=== PATIENT | female | born 1975 | race Caucasian/White ===

== ENCOUNTER 2016-05-06 21:05 | Emergency (ER) | payer MEDICAID, OTHER ==
[~2016-05-06] VITALS: Ht 162.6 cm; Wt 75.0 kg
[2016-05-06 22:17] VITALS: Ht 162.6 cm; Wt 75.0 kg
[2016-05-06 23:46] LABS: URINE BLOOD (Dip) POC Negative (NEGATIVE)
[2016-05-07] MEDS ORDERED: ONDANSETRON 4 MG INJ IV STA
[2016-05-07] MEDS ORDERED: morphine 4 MG/ML VIAL IV STA
--- NOTE | 2016-05-07 01:00 | ERD ---
ER Documentation Chief Complaint Date/Time DATE: 05/07/16 TIME: 00:58 Chief Complaint AP since Tuesday, No BM today HPI This is a 41-year-old female presents to the ER with multiple complaints. Patient is complaining of right lower quadrant pain that radiates to the left lower quadrant since Tuesday. Pain is sharp and intermittent. She has not tried anything for the pain. Patient denies nausea vomiting or diarrhea. She also denies constipation. Patient had a normal bowel movement earlier today. Patient is also complaining of chest pain and chest pressure. She denies any shortness of breath. Chest pain is nonexertional. Patient is additionally complaining of facial numbness. She denies any facial weaknesses. She denies any headaches. She denies any vision loss or vision changes. Patient also complains of weakness and fatigue. She denies any fevers or chills. Denies any hematochezia or hematemesis. She denies any urinary frequency or dysuria. There are no sick contacts at home. ROS 12 point review of systems was done, all negative except per HPI. Medications Home Meds Active Scripts Ibuprofen* (Motrin*) 600 Mg Tab, 600 MG PO Q6, #30 TAB Prov:JOSE,JACEY C 05/07/16 Hydrocodone/Acetaminophen ([place] 5-325 Tablet) 1 Each Tablet, 1 TAB PO Q6H Y for PAIN, #15 TAB Prov:JOSEJACEY C 05/07/16 Allergies Allergies: Coded Allergies: No Known Allergy (Unverified , 12/20/13) PMhx/Soc History of Surgery: No Anesthesia Reaction: No Hx Neurological Disorder: No Hx Respiratory Disorders: No Hx Cardiac Disorders: No Hx Psychiatric Problems: No Hx Miscellaneous Medical Probl: No Hx Alcohol Use: No Hx Substance Use: No Hx Tobacco Use: No Physical Exam Vitals Vital Signs Date Time Temp Pulse Resp B/P Pulse Ox O2 Delivery O2 Flow Rate FiO2 05/06/16 22:17 99.7 81 18 113/73 99 Physical Exam GENERAL: The patient is well developed and appropriate for usual state of health , in no apparent distress. HEENT: Atraumatic. PERRLA. Extraocular movements are intact. CHEST: Clear to auscultation bilaterally. There are no rales, wheezes or rhonchi. HEART: Regular rate and rhythm. No murmurs, clicks, rubs or gallops. ABDOMEN: Soft, nontender and nondistended. Good bowel sounds. No rebound or guarding. No gross peritonitis. No gross organomegaly or masses. No Cano sign or McBurney point tenderness. BACK: No midline or flank tenderness. NEURO: Alert and oriented. Cranial nerves II through XII are intact. Motor strength in all 4 extremities with 5/5 strength. Sensation grossly intact. Normal speech and gait. SKIN: There is no apparent rash or petechia. The skin is warm and dry. Result Diagram: 05/07/16 0042 Results 24 hrs Laboratory Tests Test 05/06/16 23:47 05/07/16 00:42 05/07/16 01:05 Bedside Urine Blood Negative Bedside Urine Glucose (UA) Negative Bedside Urine Ketones (LAB) Negative Bedside Urine Leukocyte Esterase (L Trace Bedside Urine Nitrite (LAB) Negative Bedside Urine Protein (LAB) Negative Bedside Urine pH (LAB) 6.0 Basophils # 0.010^3/ul Basophils % 0.5% Eosinophils # 0.110^3/ul Eosinophils % 1.4% Hematocrit 37.9% Hemoglobin 12.8g/dl Lymphocytes # 3.010^3/ul Lymphocytes % 47.1% Mean Corpuscular Hemoglobin 30.1pg Mean Corpuscular Hemoglobin Concent 33.8g/dl Mean Corpuscular Volume 89.2fl Mean Platelet Volume 9.1fl Monocytes # 0.510^3/ul Monocytes % 7.2% Neutrophils # 2.810^3/ul Neutrophils % 43.6% Nucleated Red Blood Cells # 0.010^3/ul Nucleated Red Blood Cells % 0.0/100WBC Platelet Count 04073^3/UL Red Blood Count 4.2510^6/ul Red Cell Distribution Width 12.0% White Blood Count 6.410^3/ul Urine Bilirubin NEGATIVE Urine Clarity CLEAR Urine Color LT. YELLOW Urine Glucose NEGATIVE% Urine Hemoglobin NEGATIVE Urine Ketones NEGATIVE Urine Leukocyte Esterase NEGATIVE Urine Nitrite NEGATIVE Urine Specific [place] 1.025 Urine Total Protein NEGATIVE Urine Urobilinogen 0.2 E.U./dL Urine pH 6.0 Current Medications Medications (Trade) Dose Ordered Sig/Elaine Route PRN Reason Start Time Stop Time Status Last Admin Dose Admin Morphine Sulfate (morphine) 4 mg ONCE STAT IV 05/07/16 00:00 05/07/16 00:05 DC 05/07/16 00:49 Ondansetron HCl (Zofran Inj) 4 mg ONCE STAT IV 05/07/16 00:00 05/07/16 00:05 DC 05/07/16 00:00 Procedures/MDM Jennie [address] elevation or T-wave inversion read by Dr. Law Departure Diagnosis: Primary Impression: Multiple complaints Condition: Stable JACEY GARCIA May 07, 2016 01:00
[2016-05-07 01:15] LABS: ADD SCAN DIFF NO
[2016-05-07 01:22] LABS: BASOPHILS % 0.5 % (0.0-2.0); EOSINOPHILS # 0.1 10^3/ul (0.0-0.5); EOSINOPHILS % 1.4 % (0.0-7.0); HEMATOCRIT 37.9 % (37.0-47.0); HEMOGLOBIN 12.8 g/dl (12.0-16.0); LYMPHOCYTES % 47.1 % (15.0-51.0); MEAN CORPUSCULAR HEMOGLOBIN 30.1 pg (29.0-33.0); MEAN CORPUSCULAR HGB CONC 33.8 g/dl (32.0-37.0); MEAN CORPUSCULAR VOLUME 89.2 fl (82.0-101.0); MEAN PLATELET VOLUME 9.1 fl (7.4-10.4); MONOCYTE # 0.5 10^3/ul (0.3-0.9); MONOCYTES % 7.2 % (0.0-11.0); NEUTROPHIL # 2.8 10^3/ul (1.6-7.5); NEUTROPHILS % 43.6 % (39.0-77.0); PLATELET COUNT 278 10^3/UL (140-415); RED BLOOD COUNT 4.25 10^6/ul (4.20-5.40); WHITE BLOOD COUNT 6.4 10^3/ul (4.8-10.8)
[2016-05-07 01:40] LABS: ADD UMIC NO; URINE BILIRUBIN (Dip) NEGATIVE (NEGATIVE); URINE BLOOD (Dip) NEGATIVE (NEGATIVE); URINE COLOR LT. YELLOW (YELLOW); URINE GLUCOSE (Dip) NEGATIVE (NEGATIVE); URINE KETONES (Dip) NEGATIVE (NEGATIVE); URINE LEUKOCYTE ESTERASE (Dip) NEGATIVE (NEGATIVE); URINE NITRITE (Dip) NEGATIVE (NEGATIVE); URINE TOTAL PROTEIN (Dip) NEGATIVE (NEGATIVE); URINE UROBILINOGEN (Dip) 0.2 E.U./dL (0.1-1.0)
--- NOTE | 2016-05-07 01:53 | RADRPT ---
PROCEDURE: CT abdomen and pelvis without intravenous contrast. CLINICAL INDICATION: Pain. TECHNIQUE: CT of the abdomen/pelvis was performed utilizing axial images with reconstructions in s agittal and coronal planes. The administered radiation dose is CTDI 10.4 mGy, DLP 562 mGy-cm. COMPARISON: No pertinent prior examinations were submitted for comparison. FINDINGS: Visualized Chest: The visualized lung bases are clear. Abdomen: The liver, spleen, pancreas, gallbladder,and adrenal glands are unremarkable. The kidneys are without hydronephrosis. No definite urinary calculi are seen. There is no evidence of bowel obstruction. The appendix is normal. No intra-abdominal free air is seen. There is no evidence of intra-abdominal adenopathy or free fluid. Pelvis: There is no evidence of pelvic adenopathy. The uterus and ovaries are without enlargement. The uri nary bladder is unremarkable. There is no pelvic free fluid. Bilateral tubal ligation is noted. Osseous structures: Unremarkable. IMPRESSION: No acute findings. RPTAT: HIKT .Williams Polanco MD, MD Date Time Electronically viewed and signed by .Williams Polanco MD, MD on 05/07/2016 01:53 .T/
[2016-05-07] MEDS ORDERED: HYDR-906 PO (02:01)
[2016-05-07] MEDS ORDERED: IBUP-1542 PO (02:02)
[2016-05-07 02:09] LABS: ALBUMIN/GLOBULIN RATIO 1.38
[2016-05-07 02:18] LABS: ALBUMIN 4.3 g/dl (3.3-4.9); BILIRUBIN,INDIRECT 0.1 mg/dl (0-1.1); BILIRUBIN,TOTAL 0.1 mg/dl (0.2-1.3); CALCIUM 9.5 mg/dl (8.4-10.2); CREATININE 0.76 mg/dl (0.44-1.00); POTASSIUM 4.1 mmol/L (3.5-5.1); TOTAL PROTEIN 7.4 g/dl (6.1-8.1)
[2016-05-07 02:48] VITALS: BP 114/75; PULSE 63; RESP 18; TEMP 97.7
== END 2016-05-07 02:48 | disposition home or self-care (01) ==
LOC: FTE 21:05
DX: R10.31 Right lower quadrant pain (principal); R07.89 Other chest pain
CPT/HCPCS: 36415; 74176; 80053; 81003; 83690; 85025; 93005; 96374; 96375; J2270; J2405; Z7502